=== PATIENT | male | born 1975 | race Two or more races ===

== ENCOUNTER 2017-06-01 06:21 | Emergency (ER) | payer MEDICAID ==
[~2017-06-01] VITALS: Ht 172.7 cm; Wt 89.8 kg
[2017-06-01 06:34] VITALS: Ht 172.7 cm; Wt 89.8 kg
[2017-06-01 07:10] LABS: BASOPHIL % 0.2 % (0-2); PLATELET COUNT 203 x10^3mcL (130-400); RED CELL DISTRIBUTION WIDTH 12.6 % (11.5-14.5)
[2017-06-01 07:28] LABS: CALCIUM 8.1 mg/dL (8.5-10.1); CHLORIDE SERUM 106 mmol/L (98-107); CREATININE SERUM 0.9 mg/dL (0.7-1.3); GFR1 > 60 mL/min; GLUCOSE SERUM 120 mg/dL (74-106); SODIUM SERUM 141 mmol/L (136-145)
[2017-06-01 07:32] LABS: ALBUMIN 3.5 g/dL (3.4-5.0); ALKALINE PHOSPHATASE 50 U/L (46-116); ALT/SGPT 37 U/L (16-63); AMYLASE 70 U/L (25-115); AST/SGOT 25 U/L (15-37); BILIRUBIN TOTAL 0.36 mg/dL (0.20-1.00); LIPASE 133 IU/L (73-393); TOTAL PROTEIN, SERUM 6.8 g/dL (6.4-8.2)
[2017-06-01 09:21] VITALS: BP 103/59
== END 2017-06-01 09:21 | disposition home or self-care (01) ==
LOC: ED 06:21
PROVIDERS: Emergency Medicine
DX: N20.1 Calculus of ureter (principal); R19.7 Diarrhea, unspecified
CPT/HCPCS: 36415; 83880; J1885

== ENCOUNTER 2017-09-11 14:16 | Emergency (ER) | payer MEDICAID ==
[~2017-09-11] VITALS: Ht 170.2 cm; Wt 86.2 kg
[2017-09-11 14:20] VITALS: Ht 170.2 cm; Wt 86.2 kg
[2017-09-11 15:12] LABS: BASOPHIL % 0.1 % (0-2); PLATELET COUNT 207 x10^3mcL (130-400); RED CELL DISTRIBUTION WIDTH 12.9 % (11.5-14.5)
[2017-09-11 15:19] LABS: CALCIUM 7.8 mg/dL (8.5-10.1); CARBON DIOXIDE 25.6 mmol/L (21-32); CHLORIDE SERUM 104 mmol/L (98-107); CREATININE SERUM 0.9 mg/dL (0.7-1.3); GFR1 > 60 mL/min; GLUCOSE SERUM 130 mg/dL (74-106); POTASSIUM SERUM 4.1 mmol/L (3.5-5.1); SODIUM SERUM 138 mmol/L (136-145)
[2017-09-11 15:23] LABS: ALBUMIN 3.7 g/dL (3.4-5.0); ALKALINE PHOSPHATASE 64 U/L (46-116); ALT/SGPT 39 U/L (16-63); AMYLASE 54 U/L (25-115); AST/SGOT 23 U/L (15-37); BILIRUBIN TOTAL 0.4 mg/dL (0.20-1.00); LIPASE 127 IU/L (73-393); TOTAL PROTEIN, SERUM 7.1 g/dL (6.4-8.2)
[2017-09-11 15:37] VITALS: BP 117/70
== END 2017-09-11 16:15 | disposition home or self-care (01) ==
LOC: ED 14:16
PROVIDERS: Emergency Medicine
DX: R10.31 Right lower quadrant pain (principal); R31.9 Hematuria, unspecified
CPT/HCPCS: 36415; J1885

== ENCOUNTER 2017-10-30 21:34 | Emergency (ER) | payer MEDICAID ==
[~2017-10-30] VITALS: Ht 170.2 cm; Wt 85.7 kg
[2017-10-30 21:49] VITALS: Ht 170.2 cm; Wt 85.7 kg
[2017-10-30 22:19] LABS: UA SPECIFIC GRAVITY >=1.030 (1.005-1.035); microscopic required? YES; urine erythrocyte 2+ (NEGATIVE)
[2017-10-30 22:21] LABS: PLATELET COUNT 207 x10^3mcL (130-400); RED CELL DISTRIBUTION WIDTH 13.1 % (11.5-14.5)
[2017-10-30 22:22] LABS: BASOPHIL % 2.5 % (0-2)
[2017-10-30 22:29] LABS: CALCIUM 8.1 mg/dL (8.5-10.1); CARBON DIOXIDE 25.8 mmol/L (21-32); CHLORIDE SERUM 105 mmol/L (98-107); CREATININE SERUM 0.8 mg/dL (0.7-1.3); GFR1 > 60 mL/min; GLUCOSE SERUM 120 mg/dL (74-106); POTASSIUM SERUM 3.6 mmol/L (3.5-5.1); SODIUM SERUM 139 mmol/L (136-145)
[2017-10-30 22:33] LABS: ALBUMIN 3.6 g/dL (3.4-5.0); ALKALINE PHOSPHATASE 62 U/L (46-116); ALT/SGPT 36 U/L (16-63); AST/SGOT 17 U/L (15-37); BILIRUBIN TOTAL 0.3 mg/dL (0.20-1.00); LIPASE 292 IU/L (73-393); TOTAL PROTEIN, SERUM 7.1 g/dL (6.4-8.2)
[2017-10-31 00:13] VITALS: BP 113/64
== END 2017-10-31 00:13 | disposition home or self-care (01) ==
LOC: ED 21:34
PROVIDERS: Emergency Medicine
DX: R31.9 Hematuria, unspecified (principal); R30.0 Dysuria; R39.15 Urgency of urination; R09.81 Nasal congestion; R51 Headache
CPT/HCPCS: 36415; J1885; Q0092